=== PATIENT | female | born 1980 | race Two or more races ===

== ENCOUNTER 2017-04-18 22:15 | Emergency (ER) | payer OTHER ==
[2017-04-18 22:29] VITALS: BP 125/80; PULSE 85; TEMP 98; BMI 31.9
[2017-04-18] MEDS ORDERED: KETOROLAC TROMETHAMINE 60 MG/2 ML VIAL IM ONE (23:09)
--- NOTE | 2017-04-18 23:09 | PDOC ---
History of Present Illness - General Chief Complaint: Chest Pain Stated Complaint: CHEST PAIN WITH MOVING AND BREATHING Time Seen by Provider: 04/18/17 22:23 History Source: Patient Exam Limitations: No Limitations - History of Present Illness Initial Comments: 04/18/17 23:07 This is a 36-year-old female who is healthy aches no medication and has no prior medical history who comes in complaining of acute onset of pleuritic type chest pain. Patient said she did have a recent mild viral upper respiratory illness otherwise denies any recent illness. Patient denies any recent travel. Patient denies any history of hypertension, high cholesterol, diabetes. Patient does not smoke and she does not take any oral contraceptives or has had any recent travel. Patient denies any pain in her swelling of her legs. Patient denies any family history of heart disease or pulmonary embolism. Patient said pain is worse when she takes a deep breath coughs or moves. Patient denies any shortness of breath, diaphoresis or nausea PAST MEDICAL HISTORY: no significant history PAST SURGICAL HISTORY: no significant history FAMILY HISTORY: no pertinant history SOCIAL HISTORY: Pt lives with family and is employed. MEDICATIONS: reviewed ALLERGIES: As per nursing notes Review of Systems General: No fevers or chills, no weakness, no weight loss HEENT: No change in vision. No sore throat,. No ear pain CardioVascular: + chest pain, no shortness of breath Respiratory:No cough, or wheezing. Gastrointestinal: no nausea, vomitting, diarrhea or constipation, No rectal bleeding Genitourinary: No dysuria, hematuria, or frequency Musculoskeletal: No joint or muscle pain or swelling Neurologic: No headache, vertigo, dizziness or loss of consciousness Psychiatric: nor depression Skin: No rashes or easy bruising Endocrine: no increased thirst or abnormal weight change Allergic: no skin or latex allergy All other systems reviewed and normal Exam: General: Well-nourished well-developed individual, no acute distress HEENT: Throat: Normal, tonsils normal, no erythema or exudate Neck: Supple, no meningeal signs, no lymphadenopathy Eyes::Pupils equal reactive and round, extraocular motion intact Chest: Nontender to palpation Cardiac: S1-S2 normal, regular rate and rhythm, no murmurs rubs or gallops Respiratory: Lungs clear to auscultation bilateral Abdomen: Soft, nondistended, normal bowel sounds, nontender to palpation diffusely Extremities: Warm, dry, no cyanosis, clubbing, or edema Skin: No rashes Neuro: Alert and oriented x3, CN II - XII intact, nonfocal exam with normal strength, normal sensation, normal reflexes, normal gait, Psych: Normal mood and affect 04/19/17 01:04 Chest x-ray no acute pathology Reassessment patient feels much better post Toradol EKG shows normal sinus rhythm at a rate of [address]-T wave changes normal intervals normal EKG Assessment and plan: This is a 36-year-old female with pleuritic type chest pain and normal EKG normal chest x-ray and much improved after Toradol. Patient discharged told to take anti-inflammatories Aleve or Motrin and follow-up with her doctor Past History - Past Medical History Allergies/Adverse Reactions: Allergies Allergy/AdvReac Type Severity Reaction Status Date / Time No Known Allergies Allergy Verified 04/18/17 22:18 Home Medications: Ambulatory Orders NK [No Known Home Medication] 04/18/17 COPD: No Other medical history: DENIES - Suicide/Smoking/Psychosocial Hx Smoking History: Never smoked Have you smoked in the past 12 months: No Information on smoking cessation initiated: No Hx Alcohol Use: Yes (OCCAS) Drug/Substance Use Hx: No Substance Use Type: None *Physical Exam - Vital Signs Last Vital Signs Temp Pulse Resp BP Pulse Ox 98 F 85 18 125/80 100 04/18/17 22:25 04/18/17 22:25 04/18/17 22:25 04/18/17 22:25 04/18/17 22:25 ED Treatment Course - RADIOLOGY Radiology Studies Ordered: Category Date Time Status CHEST PA & LAT [RAD] Stat Radiology 04/19/17 00:40 Ordered - Medications Given in the ED: ED Medications Discontinued Medications Generic Name Dose Route Start Last Admin Trade Name Freq PRN Reason Stop Dose Admin Ketorolac Tromethamine 60 mg 04/18/17 23:09 04/18/17 23:16 Toradol Injection - IM 04/18/17 23:10 60 mg ONCE ONE Administration *DC/Admit/Observation/Transfer Diagnosis at time of Disposition: Pleuritic chest pain - Discharge Dispostion Disposition: HOME Condition at time of disposition: Stable Admit: No - Referrals - Patient Instructions Printed Discharge Instructions: DI for Pleurisy Additional Instructions: Take an anti-inflammatory ibuprofen 3 tablets 3 times a day for the next 45 days or alternatively U can take Aleve 2 tablets twice a day take with food don' t take on an empty stomach Return to the emergency department immediately with ANY new, persistent or worsening symptoms. Continue any medications as previously prescribed by your physician. You should follow up with your primary doctor as soon as possible regarding today's emergency department visit. . Please make sure your doctor reviews the results of your emergency evaluation. Thank you for coming to the Emergency Department today for your care. It was a pleasure to see you today. Please note that your evaluation is INCOMPLETE until you follow-up with your doctor. - Post Discharge Activity
[2017-04-18] MEDS ORDERED: KETOROLAC TROMETHAMINE 60 MG/2 ML VIAL ONE (23:10)
--- NOTE | 2017-04-21 14:58 | EKG ---
Test Reason : Blood Pressure : / mmHG Vent. Rate : 075 BPM Atrial Rate : 075 BPM P-R Int : 128 ms QRS Dur : 080 ms QT Int : 396 ms P-R-T Axes : 038 049 015 degrees QTc Int : 442 ms NORMAL SINUS RHYTHM NORMAL ECG NO PREVIOUS ECGS AVAILABLE Confirmed by DUKE OLIVIA MD ([id number] on 04/21/2017 2:58:19 PM Referred By: MIKI Confirmed By:DUKE OLIVIA MD
== END 2017-04-19 01:09 | disposition home or self-care (01) ==
LOC: FER 22:15
PROC: 3E0333Z Introduction of Anti-inflammatory into Peripheral Vein, Percutaneous Approach (ICD-10-PCS; principal; 2017-04-18)
DX: R07.1 Chest pain on breathing (principal)
CPT/HCPCS: 71046-TC-FY; 93005; 99281-25